=== PATIENT | female | born 1995 | race Caucasian/White ===

== ENCOUNTER 2018-11-20 13:36 | Outpatient (CLI) | payer MEDICAID | END 2018-11-20 13:37 | disposition critical access hospital (66) | LOC: EMS 13:36 | PROVIDERS: ATTEND Surgery | DX: R07.9 Chest pain, unspecified (principal) | CPT/HCPCS: A0425; A0429; A0999 ==

== ENCOUNTER 2018-11-20 13:56 | Emergency (ER) | payer MEDICAID ==
--- NOTE | 2018-11-20 14:42 | ED Physician Documentation ---
PD HPI CHEST PAIN - Stated complaint Stated Complaint: CP - Chief complaint Chief Complaint: Cardiac - History obtained from History obtained from: Patient - History of Present Illness Timing - onset: Enter time (544), Today Timing - onset during: Sleep Timing - duration: Hours Timing - details: Abrupt onset, Still present Quality: Sharp, Pain Location: Substernal, Upper back Radiation: No: Jaw, Neck Improved by: Rest Worsened by: Inspiration, Movement, Palpation Associated symptoms: Nausea. No: Shortness of air, Diaphoresis, Vomiting Similar symptoms before: Has not had sx before Recently seen: Not recently seen - Additional information Additional information: Previously well 23-year-old female had pizza last night and this morning at 5:45 AM she awoke with severe central chest pain radiating to her back. She has had heartburn previously that has been severe and she states this does not feel like higher heartburn she has having a tearing feeling. Review of Systems Constitutional: denies: Fever Eyes: denies: Decreased vision Ears: denies: Ear pain Nose: denies: Congestion Throat: denies: Sore throat Cardiac: reports: Chest pain / pressure. denies: Palpitations, Pedal edema, Calf pain Respiratory: denies: Dyspnea, Cough GI: reports: Abdominal Pain, Nausea. denies: Vomiting, Constipation, Diarrhea : denies: Dysuria, Frequency PD PAST MEDICAL HISTORY - Past Medical History Psych: Depression, Anxiety - Past Surgical History Past Surgical History: Yes HEENT: Myringotomy (tubes) - Present Medications Home Medications: Ambulatory Orders Medication Instructions Recorded Confirmed Citalopram [CeleXA] 25 mg PO DAILY 11/23/14 11/23/14 Dextroamphetamine/Amphetamine 20 mg PO DAILY 11/23/14 11/23/14 [Adderall 20 mg Tablet] Hydrocodone/Acetaminophen [Tullos 1 each PO Q6H PRN #25 tablet 11/23/14 5-325 Tablet] Ibuprofen 400 mg PO TID #20 tablet 11/23/14 busPIRone [Buspar] 15 mg PO DAILY 11/23/14 11/23/14 Hydrocodone/Acetaminophen 1 - 2 each PO Q6H PRN #14 tablet 11/20/18 [Hydrocodon-Acetaminophen 5-325] Sucralfate [Carafate] 1 gm PO ACHS #60 tablet 11/20/18 - Allergies Allergies/Adverse Reactions: Allergies Allergy/AdvReac Type Severity Reaction Status Date / Time Iodinated Contrast- Oral and Allergy Hives Verified 06/24/14 22:46 IV Dye [Iodinated Contrast Media - IV Dye] iodine Allergy Hives Verified 06/24/14 22:46 - Social History Does the pt smoke?: No Smoking Status: Never smoker Does the pt drink ETOH?: Yes Does the pt have substance abuse?: No - Immunizations Immunizations are current?: Yes - POLST Patient has POLST: No PD ED PE NORMAL - Vitals Vital signs reviewed: Yes (hypertnesive mild ) - General General: Alert and oriented X 3, Well developed/nourished, Other (appears to be in pain clutching the central chest) - HEENT HEENT: Atraumatic, PERRL, EOMI - Neck Neck: Supple, no meningeal sign - Cardiac Cardiac: RRR, No murmur - Respiratory Respiratory: No respiratory distress, Clear bilaterally - Abdomen Abdomen: Soft, Other (RUQ tenderness worse with insp) - Back Back: No CVA TTP, No spinal TTP - Derm Derm: Normal color, Warm and dry, No rash - Extremities Extremities: No deformity, No edema - Neuro Neuro: Alert and oriented X 3, 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, No motor deficit, No sensory deficit, Normal speech Eye Opening: Spontaneous Motor: Obeys Commands Verbal: Oriented GCS Score: 15 - Psych Psych: Normal mood, Normal affect Results - Vitals Vitals: Oxygen O2 Source Room air - EKG (time done) 1358 Rate: Rate (enter#) (94) Rhythm: NSR Ischemia: Normal ST segments Compare to prior EKG: Old EKG unavailable Computer interpretation: Agree with computer - Labs Labs: Laboratory Tests 11/20/18 11/20/18 11/20/18 13:08 15:08 15:38 WBC 11.5 H RBC 5.33 Hgb 12.6 Hct 41.6 MCV 78.0 L MCH 23.6 L MCHC 30.3 L RDW 17.5 H Plt Count 330 MPV 10.1 Neut # (Auto) 8.5 H Lymph # (Auto) 2.2 [place] # (Auto) 0.7 Eos # (Auto) 0.1 Baso # (Auto) 0.0 Absolute Nucleated RBC 0.00 Nucleated RBC % 0.0 Sodium Potassium Chloride Carbon Dioxide Anion Gap BUN Creatinine Estimated GFR (MDRD) Glucose Calcium Total Bilirubin AST ALT Alkaline Phosphatase Troponin I < 0.04 Total Protein Albumin Globulin Albumin/Globulin Ratio Lipase Urine Color YELLOW Urine Clarity HAZY Urine pH 5.5 Ur Specific Loraine 1.020 Urine Protein NEGATIVE Urine Glucose (UA) NEGATIVE Urine Ketones NEGATIVE Urine Occult Blood NEGATIVE Urine Nitrite NEGATIVE Urine Bilirubin NEGATIVE Urine Urobilinogen 0.2 (NORMAL) Ur Leukocyte Esterase TRACE H Urine RBC 0-5 Urine WBC 6-10 H Ur Squamous Epith Cells MANY Squamous H Urine Bacteria Moderate H Ur Microscopic Review INDICATED Urine Culture Comments NOT INDICATED Urine HCG, Qual NEGATIVE 11/20/18 16:54 WBC RBC Hgb Hct MCV MCH MCHC RDW Plt Count MPV Neut # (Auto) Lymph # (Auto) [place] # (Auto) Eos # (Auto) Baso # (Auto) Absolute Nucleated RBC Nucleated RBC % Sodium 140 Potassium 4.0 Chloride 99 L Carbon Dioxide 24 Anion Gap 17.0 H BUN 12 Creatinine 0.8 Estimated GFR (MDRD) 87 L Glucose 98 Calcium 9.3 Total Bilirubin 0.4 AST 33 ALT 38 Alkaline Phosphatase 87 Troponin I Total Protein 8.6 H Albumin 4.3 Globulin 4.3 H Albumin/Globulin Ratio 1.0 Lipase 23 Urine Color Urine Clarity Urine pH Ur Specific Loraine Urine Protein Urine Glucose (UA) Urine Ketones Urine Occult Blood Urine Nitrite Urine Bilirubin Urine Urobilinogen Ur Leukocyte Esterase Urine RBC Urine WBC Ur Squamous Epith Cells Urine Bacteria Ur Microscopic Review Urine Culture Comments Urine HCG, Qual - Rads (name of study) chest Radiology: Prelim report reviewed (Impression: Normal single view chest.), EMP read indepedently, See rad report u/s gb Radiology: Prelim report reviewed (Impression: Diffuse hepatic steatosis.), EMP read indepedently, See rad report Procedures - Bedside sono Bedside sono by EMP: With use of bedside ultrasound the right upper quadrant is imaged the gallbladder is distended and tender to palpation sonographically. There is question of stones in the dependent gallbladder. PD MEDICAL DECISION MAKING - ED course Complexity details: reviewed results, re-evaluated patient, considered differential, d/w patient, d/w family ED course: 23-year-old female with acute substernal chest pain radiating to her back has some relief with the initial GI cocktail. The relief is brief lived and a second dose is administered. She has further relief with this given with carafate. She is also given pantoprazole orally. She continues to complain of pain and is administered IM dialudid with resolution. Departure - Departure Disposition: 01 Home, Self Care Clinical Impression: Gastroesophageal reflux disease Qualifiers: Esophagitis presence: with esophagitis Qualified Code(s): K21.0 - Gastro- esophageal reflux disease with esophagitis Condition: Stable Instructions: ED GERD Follow-Up: Darvin Bowens MD [Primary Care Provider] - Prescriptions: Hydrocodone/Acetaminophen [Hydrocodon-Acetaminophen 5-325] 1 - 2 each PO Q6H PRN #14 tablet PRN Reason: pain Sucralfate [Carafate] 1 gm PO ACHS #60 tablet Comments: Today it appears your chest pain is related to irritation to your esophagus. The recommendation is to take medication to reduce the acid in your stomach take the medication to coat the esophagus and stomach to aid in healing and to reduce your use of anything that is insulting to the stomach. Stop taking ibuprofen or Aleve. Do not drink alcohol. Take medications for reduction of the acid in your stomach such as Pepcid AC or Nexium. Discharge Date/Time: 11/20/18 17:56
[2018-11-20] MEDS ORDERED: LIDOCAINE VISCOUS 2% 15 ML UDC MM STA ×2 (14:53→15:31)
--- NOTE | 2018-11-20 14:53 | XRAY Report ---
Reason: Chest Pain Procedure Date: 11/20/2018 Accession Number: [id number] / [id number] Procedure: XR - Chest 1 View X-Ray CPT Code: 65854 FULL RESULT: EXAM: CHEST RADIOGRAPHY EXAM DATE: 11/20/2018 02:32 PM. CLINICAL HISTORY: Chest Pain. COMPARISON: None. TECHNIQUE: 1 view. FINDINGS: Lungs/Pleura: No localized infiltrate, consolidation, effusion, or pneumothorax. Mediastinum: Within exam limitations, the cardiomediastinal contour is normal. The upper lobe vessels not distended. Other: None. IMPRESSION: Normal single view chest. [facility]
[2018-11-20] MEDS ORDERED: MAG HYDROX/AL HYDROX/SIMETH 30 ML UDC PO STA ×2 (14:54→15:31)
[2018-11-20 15:26] LABS: BASOPHILS % (AUTO) 0.3 %; EOSINOPHILS # (AUTO) 0.1 10^3/uL (0.0-0.7); EOSINOPHILS % (AUTO) 0.5 %; HGB - HEMOGLOBIN 12.6 g/dL (12.0-16.0); LYMPHOCYTES # (AUTO) 2.2 10^3/uL (1.5-3.5); LYMPHOCYTES % (AUTO) 18.8 %; MEAN CORPUSCULAR HEMOGLOBIN 23.6 pg (27.0-31.0); MEAN CORPUSCULAR HGB CONC 30.3 g/dL (32.0-36.0); MEAN PLATELET VOLUME 10.1 fL (7.9-10.8); MONOCYTES # (AUTO) 0.7 10^3/uL (0.0-1.0); NEUTROPHILS # (AUTO) 8.5 10^3/uL (1.5-6.6); PLT - PLATELET COUNT 330 10^3/uL (130-450); RED BLOOD COUNT 5.33 10^6/uL (4.20-5.40); RED CELL DISTRIBUTION WIDTH 17.5 % (12.0-15.0); WHITE BLOOD COUNT 11.5 x10^3/uL (4.8-10.8)
[2018-11-20] MEDS ORDERED: SUCRALFATE 1 GM/10 ML UDC PO STA (15:31)
[2018-11-20] MEDS ORDERED: PANTOPRAZOLE 40 MG VIAL IVP STA (15:32)
[2018-11-20 15:41] LABS: BILIRUBIN,URINE NEGATIVE (NEGATIVE); GLUCOSE, URINE (UA) NEGATIVE (NEGATIVE); KETONES,URINE (UA) NEGATIVE (NEGATIVE); LEUKOCYTE ESTERASE, URINE TRACE (NEGATIVE); NITRITE,URINE NEGATIVE (NEGATIVE); OCCULT BLOOD,URINE NEGATIVE (NEGATIVE); PH,URINE 5.5 PH (5.0-7.5); PROTEIN,URINE NEGATIVE (NEGATIVE); UROBILINOGEN,URINE 0.2 (NORMAL) E.U./dL (NORMAL)
[2018-11-20 15:46] LABS: CLARITY,URINE HAZY (CLEAR); HCG UR QUAL NEGATIVE
[2018-11-20 15:58] LABS: BACTERIA,URINE Moderate /HPF (None Seen); RBC,URINE 0-5 /HPF (0-5); SQUAMOUS EPITHELIAL CELL,UR MANY Squamous (<= Few)
[2018-11-20] MEDS ORDERED: PANTOPRAZOLE 40 MG TABLET PO STA (16:30)
[2018-11-20] MEDS ORDERED: ONDANSETRON ODT 4 MG TABLET TL STA (16:58)
[2018-11-20] MEDS ORDERED: HYDROmorphone 1 MG/ML CARPUJECT IM STA (16:58)
[2018-11-20 17:24] LABS: ALBUMIN 4.3 g/dL (3.2-5.5); BILIRUBIN,TOTAL 0.4 mg/dL (0.2-1.0); CALCIUM 9.3 mg/dL (8.5-10.3); CREATININE 0.8 mg/dL (0.4-1.0); TOTAL PROTEIN 8.6 g/dL (6.7-8.2)
[2018-11-20 17:56] VITALS: BP 142/78
--- NOTE | 2018-11-20 18:11 | Ultrasound Report ---
Reason: RUQ pain Procedure Date: 11/20/2018 Accession Number: [id number] / [id number] Procedure: US - Abdomen Limited CPT Code: FULL RESULT: EXAM: ABDOMEN ULTRASOUND LIMITED, RUQ EXAM DATE: 11/20/2018 04:13 PM. CLINICAL HISTORY: RUQ pain. COMPARISON: None. TECHNIQUE: Real-time scanning was performed with static images obtained. FINDINGS: Liver: Diffusely echogenic. 16.6 cm. Main portal vein flow: Hepatopetal. Gallbladder: No stones, wall thickening, or sonographic Cohen's sign. Biliary System: CBD measures 4 mm. No intrahepatic ductal dilatation. Other: Right kidney demonstrates no hydronephrosis. IMPRESSION: Diffuse hepatic steatosis. RADIA
== END 2018-11-20 17:56 | disposition home or self-care (01) ==
LOC: EDUNIT# → ED 13:56
DX: K21.0 Gastro-esophageal reflux disease with esophagitis (principal)
CPT/HCPCS: 71045; 76705; 80053; 81001; 81025; 83690; 84484; 85025; 93005; 96374; 99283; 99284; A9270; J1170; Q0162; 81003; 87086